=== PATIENT | female | born 1985 | race Caucasian/White ===

== ENCOUNTER 2016-06-14 10:53 | Emergency (ER) | payer OTHER ==
[~2016-06-14] VITALS: Ht 157.5 cm; Wt 61.5 kg
[~2016-06-14 10:53] MED LIST: BENADRYL25 MG PO; DELTASONE20 M1 PO; DIFLUCAN150 MG PO; FLEXERIL10 MG PO; HYCODAN SYRUP480 ML PO; KENALOG,ARISTOC80 GM TP; LIDODERM 5% P1 PATCH TD; LORTAB 5-325 M1 EACH PO; MEDROL DOSEPAK4 MG PO; MOTRIN800 MG PO; NAPROSYN500 MG PO; NORCO 5/3251 TABLET PO; NORCO 7.5/321 TABLET PO; PERCOCET 5/31 TABLET PO; PREDNISONE50 MG PO; PROAIR HFA8.5 GM IH; PROVENTIL HFA6.7 GM IH; VALTREX50 MG/ML PO; VENTOLIN HFA18 GM IH; ZITHROMAX250 MG PO
[2016-06-14 11:06] VITALS: BP 109/79
== END 2016-06-14 12:32 | disposition home or self-care (01) ==
LOC: EME 10:53
DX: S50.02XA Contusion of left elbow, initial encounter (principal); W20.8XXA Other cause of strike by thrown, projected or falling object, initial encounter; F17.200 Nicotine dependence, unspecified, uncomplicated; Z88.5 Allergy status to narcotic agent; Z88.8 Allergy status to other drugs, medicaments and biological substances; Z88.6 Allergy status to analgesic agent
CPT/HCPCS: 73080; 99281; 99283

== ENCOUNTER 2016-07-08 11:01 | Emergency (ER) | payer OTHER ==
[~2016-07-08] VITALS: Ht 157.5 cm; Wt 63.6 kg
[2016-07-08 11:46] LABS: HEMATOCRIT 37.6 % (36.0-46.0); MCH 31.8 PG (29.0-34.0); MCHC 33.8 G/DL (30.0-36.0); MCV 94.2 FL (83-99); MEAN PLAT.VOLUME 9.8 uM^3 (9.5-12.4); PLATELET COUNT 282 K/uL (156-360); RBC DIS.WIDTH-CV 12.6 % (11.8-14.6); RBC DIS.WIDTH-SD 43.5 % (39-53); RED BLOOD COUNT 3.99 M/uL (3.80-5.20); WHITE BLOOD COUNT 6.6 K/uL (4.1-10.2)
[2016-07-08] MEDS ORDERED: PNV PRENATAL P1 EACH PO (12:23)
[2016-07-08] MEDS ORDERED: PERCOCET 5/31 TABLET PO (12:24)
[2016-07-08 12:36] LABS: ADD MIUA? YES; BILIRUBIN NEGATIVE; BLOOD SMALL; COLOR YELLOW ((YELLOW)); GLUCOSE (STRIP) NEGATIVE; KETONES NEGATIVE; LEUKOCYTES NEGATIVE; NITRITE NEGATIVE; PROTEIN (STRIP) NEGATIVE; SPECIFIC GRAVITY 1.009 (1.000-1.030); UROBILINOGEN 0.2 MG/DL (0.2-1.0)
[2016-07-08 12:41] LABS: BACTERIA NONE SEEN /HPF; EPITHELIAL CELLS RARE /HPF; MUCUS TRACE /LPF; RED BLOOD CELLS 0-5 /HPF (0-5); UCUL ADDED? NO; WHITE BLOOD CELLS 0-5 /HPF (0-5)
[2016-07-08 14:58] VITALS: BP 116/82
== END 2016-07-08 15:09 | disposition home or self-care (01) ==
LOC: EXP 11:01 → EME 11:01 → EXP 15:09
DX: O20.0 Threatened abortion (principal); O99.331 Smoking (tobacco) complicating pregnancy, first trimester; Z3A.01 Less than 8 weeks gestation of pregnancy; F17.200 Nicotine dependence, unspecified, uncomplicated
CPT/HCPCS: 76801; 81003; 84702; 85027; 99281; 99285

== ENCOUNTER 2016-07-30 14:57 | Emergency (ER) | payer OTHER ==
[~2016-07-30] VITALS: Ht 157.5 cm; Wt 61.5 kg
[~2016-07-30 14:57] MED LIST changes: +PNV PRENATAL P1 EACH PO
[2016-07-30 16:06] LABS: HEMATOCRIT 35.7 % (36.0-46.0); MCH 31.9 PG (29.0-34.0); MCHC 33.1 G/DL (30.0-36.0); MCV 96.5 FL (83-99); MEAN PLAT.VOLUME 9.7 uM^3 (9.5-12.4); PLATELET COUNT 364 K/uL (156-360); RBC DIS.WIDTH-CV 13.5 % (11.8-14.6); RBC DIS.WIDTH-SD 47.4 % (39-53); WHITE BLOOD COUNT 9.2 K/uL (4.1-10.2)
[2016-07-30 16:16] LABS: CHLORIDE 107 mEq/L (99-109); POTASSIUM 3.5 mEq/L (3.7-5.4); SODIUM 142 mEq/L (136-147)
[2016-07-30 16:18] LABS: GLUCOSE 97 mg/dL (70-99)
[2016-07-30 16:19] LABS: ANION GAP 12 MEQ/L (2-14)
[2016-07-30 16:22] LABS: GFR ESTIMATE (CALCULATED) > 59 mL/min/
[2016-07-30 16:23] LABS: UREA NITROGEN (BUN) 9 mg/dL (9-23)
[2016-07-30 16:32] LABS: QUANTITATIVE HCG 248.7 MIU/ML
[2016-07-30 16:53] LABS: ADD MIUA? YES; BILIRUBIN NEGATIVE; BLOOD MODERATE; COLOR YELLOW ((YELLOW)); GLUCOSE (STRIP) NEGATIVE; KETONES NEGATIVE; LEUKOCYTES SMALL; NITRITE NEGATIVE; PROTEIN (STRIP) NEGATIVE; SPECIFIC GRAVITY 1.017 (1.000-1.030); UROBILINOGEN 0.2 MG/DL (0.2-1.0)
[2016-07-30 17:01] LABS: BACTERIA RARE /HPF; EPITHELIAL CELLS 1+ /HPF; MUCUS 1+ /LPF
[2016-07-30] MEDS ORDERED: PREDNISONE20 MG PO (17:17)
[2016-07-30 17:30] VITALS: BP 97/66
== END 2016-07-30 17:33 | disposition home or self-care (01) ==
LOC: EME 14:57
PROVIDERS: Physician Assistant
DX: N93.9 Abnormal uterine and vaginal bleeding, unspecified (principal); G43.909 Migraine, unspecified, not intractable, without status migrainosus; F17.200 Nicotine dependence, unspecified, uncomplicated; Z88.6 Allergy status to analgesic agent
CPT/HCPCS: 76856; 80048; 81003; 84702; 85027; 87086; 99281; 99285; J7030

== ENCOUNTER 2016-12-14 17:15 | Emergency (ER) | payer OTHER ==
[~2016-12-14 17:15] MED LIST changes: +PREDNISONE20 MG PO
== END 2016-12-14 21:26 | disposition left against medical advice (07) ==
LOC: EME 17:15
DX: R51 Headache (principal); Z53.21 Procedure and treatment not carried out due to patient leaving prior to being seen by health care provider

== ENCOUNTER 2017-02-28 16:58 | Emergency (ER) | payer OTHER ==
[~2017-02-28] VITALS: Ht 157.5 cm; Wt 64.8 kg
[2017-02-28 19:01] LABS: MCH 33.5 PG (29.0-34.0); MCHC 34.4 G/DL (30.0-36.0); MCV 97.6 FL (83-99); MEAN PLAT.VOLUME 9.9 uM^3 (9.5-12.4); PLATELET COUNT 217 K/uL (156-360); RBC DIS.WIDTH-CV 12.9 % (11.8-14.6); RED BLOOD COUNT 3.28 M/uL (3.80-5.20); WHITE BLOOD COUNT 11.3 K/uL (4.1-10.2)
[2017-02-28 19:09] LABS: PROTHROMBIN TIME 11.6 SEC (10.2-12.9)
[2017-02-28 19:11] LABS: PTT 29.5 SEC (25-37)
[2017-02-28 19:14] LABS: CHLORIDE 106 mEq/L (99-109); POTASSIUM 3.6 mEq/L (3.7-5.4); SODIUM 137 mEq/L (136-147)
[2017-02-28 19:16] LABS: GLUCOSE 101 mg/dL (70-99)
[2017-02-28 19:17] LABS: ANION GAP 8 MEQ/L (2-14)
[2017-02-28 19:20] LABS: GFR ESTIMATE (CALCULATED) > 59 mL/min/; UREA NITROGEN (BUN) 6 mg/dL (9-23)
[2017-02-28] MEDS ORDERED: LOVENOX80 MG/0.8 SC (21:57)
[2017-02-28 22:16] VITALS: BP 111/67
== END 2017-02-28 22:44 | disposition home or self-care (01) ==
LOC: RME 16:58 → EME 16:58 → RME 22:44
PROVIDERS: Physician Assistant Medical
DX: O22.32 Deep phlebothrombosis in pregnancy, second trimester (principal); I82.422 Acute embolism and thrombosis of left iliac vein; I82.412 Acute embolism and thrombosis of left femoral vein; O99.332 Smoking (tobacco) complicating pregnancy, second trimester; Z3A.22 22 weeks gestation of pregnancy; F17.200 Nicotine dependence, unspecified, uncomplicated
CPT/HCPCS: 71275; 80048; 85027; 85610; 85730; 93971; J1650; J7030

== ENCOUNTER 2017-05-03 12:29 | Outpatient (CLI) | payer OTHER ==
[~2017-05-03] VITALS: Ht 157.5 cm; Wt 66.2 kg
[~2017-05-03 12:29] MED LIST changes: +LOVENOX80 MG/0.8 SC
[2017-05-03 12:36] VITALS: BP 100/63
[2017-05-03 12:47] VITALS: BP 104/63
[2017-05-03] MEDS ORDERED: COLACE100 MG PO (12:53)
[2017-05-03 14:12] VITALS: BP 108/64
[2017-05-03 14:36] LABS: SOURCE URINE
[2017-05-05 12:44] LABS: CHLAMYDIA TRACHOMATIS NEGATIVE; NEISSERIA GONORRHOEAE NEGATIVE
== END 2017-05-03 14:53 | disposition home or self-care (01) ==
LOC: LDRP-OP 12:29 → 2WEST 12:30 → LDRP-OP 08-01 15:24
PROVIDERS: Advanced Practice Midwife
DX: O12.03 Gestational edema, third trimester (principal); Z86.718 Personal history of other venous thrombosis and embolism; Z79.01 Long term (current) use of anticoagulants; Z3A.31 31 weeks gestation of pregnancy; O99.333 Smoking (tobacco) complicating pregnancy, third trimester; F17.200 Nicotine dependence, unspecified, uncomplicated
CPT/HCPCS: 59025; 87491; 87591; 93971; G0378

== ENCOUNTER 2017-06-06 21:45 | Outpatient (CLI) | payer OTHER ==
[~2017-06-06 21:45] MED LIST changes: +COLACE100 MG PO
[2017-06-06 22:04] VITALS: BP 106/65
[2017-06-06] MEDS ORDERED: HEPARIN SO5000 UNIT4 SC (23:48)
[2017-06-07] MEDS ORDERED: IBUPROFEN800 MG PO (08:39)
[2017-06-07] MEDS ORDERED: LOVENOX80 MG/0.8 SC (08:39)
== END 2017-06-06 23:50 | disposition home or self-care (01) ==
LOC: LDRP-OP 21:45 → 2WEST 21:47 → LDRP-OP 08-01 05:51
DX: O60.03 Preterm labor without delivery, third trimester (principal); Z3A.36 36 weeks gestation of pregnancy
CPT/HCPCS: 59025; G0378

== ENCOUNTER 2017-06-07 02:20 | Inpatient (IN) | payer OTHER ==
[2017-06-07] VITALS (10 sets, daily range): BP systolic 95–130; BP diastolic 57–84
[~2017-06-07 02:20] MED LIST changes: +HEPARIN SO5000 UNIT4 SC
[2017-06-07 03:32] LABS: BASOPHIL (%) 0.5 % (0-1); BASOPHIL COUNT 0.1 K/uL (0-0.1); EOSINOPHIL (%) 1.9 % (0-5); EOSINOPHIL COUNT 0.3 K/uL (0-0.3); HEMATOCRIT 35.3 % (36.0-46.0); HEMOGLOBIN 12.2 G/DL (11.9-15.5); IMMATURE GRANULOCYTE (%) 1.1 % (0.0-0.7); MCH 34.2 PG (29.0-34.0); MCHC 34.6 G/DL (30.0-36.0); MCV 98.9 FL (83-99); MONOCYTE (%) 5.7 % (3-12); MONOCYTE COUNT 0.8 K/uL (0-0.8); NEUTROPHIL (%) 69.8 % (45-76); NEUTROPHIL COUNT 9.9 K/uL (1.8-6.4); PLATELET COUNT 207 K/uL (156-360); RBC DIS.WIDTH-CV 14.2 % (11.8-14.6); RBC DIS.WIDTH-SD 50.9 % (39-53); RED BLOOD COUNT 3.57 M/uL (3.80-5.20); WHITE BLOOD COUNT 14.2 K/uL (4.1-10.2)
[2017-06-07 05:31] LABS: GROUP B STREP POSITIVE (NEGATIVE)
[2017-06-07 08:00] LABS: THC CANNABINOIDS NEGATIVE (50 ng/mL)
[2017-06-07 08:01] LABS: AMPHETAMINE NEGATIVE (500 ng/mL); BARBITURATES NEGATIVE (200 ng/mL); BENZODIAZEPINES NEGATIVE (150 ng/mL); BUPRENORPHINE NEGATIVE (10 ng/mL); COCAINE NEGATIVE (150 ng/mL); METHADONE NEGATIVE (200 ng/mL); METHAMPHETAMINE NEGATIVE (500 ng/mL); OPIATES (MORPHINE) NEGATIVE (100 ng/mL); OXYCODONE NEGATIVE (100 ng/mL); PHENCYCLIDINE NEGATIVE (25 ng/mL); PROPOXYPHENE NEGATIVE (300 ng/mL); TRICYCLIC ANTIDEPRESSANTS NEGATIVE (300 ng/mL)
[2017-06-07] MEDS ORDERED: IBUPROFEN800 MG PO (08:39)
[2017-06-07] MEDS ORDERED: LOVENOX80 MG/0.8 SC (08:39)
[2017-06-08 07:34] VITALS: BP 102/73
[2017-06-08 14:49] VITALS: BP 109/67
[2017-06-08 22:21] VITALS: BP 111/72
[2017-06-09 08:05] VITALS: BP 112/68
== END 2017-06-09 13:15 | disposition home or self-care (01) | DRG 774 ==
LOC: LDRP-OP 02:20 → 2WEST 02:21 → LDRP-OP 08-01 00:22
PROVIDERS: Obstetrics & Gynecology Obstetrics
DX: O60.14X0 Preterm labor third trimester with preterm delivery third trimester, not applicable or unspecified (principal); O87.1 Deep phlebothrombosis in the puerperium; I82.422 Acute embolism and thrombosis of left iliac vein; Z79.01 Long term (current) use of anticoagulants; O98.52 Other viral diseases complicating childbirth; B00.9 Herpesviral infection, unspecified; O99.824 Streptococcus B carrier state complicating childbirth; O99.814 Abnormal glucose complicating childbirth; O99.334 Smoking (tobacco) complicating childbirth; F17.200 Nicotine dependence, unspecified, uncomplicated; Z3A.36 36 weeks gestation of pregnancy; Z37.0 Single live birth
CPT/HCPCS: 36415; 59025; 85025; 85610; 85730; 87077; 87081; 87086; 87186; 87653; 88307; J1650; J7120

== ENCOUNTER 2017-10-08 15:49 | Emergency (ER) | payer OTHER ==
[~2017-10-08] VITALS: Ht 157.5 cm; Wt 64.1 kg
[~2017-10-08 15:49] MED LIST changes: +IBUPROFEN800 MG PO
[2017-10-08 15:52] VITALS: BP 119/81
== END 2017-10-08 18:44 | disposition left against medical advice (07) ==
LOC: EME 15:49
DX: M25.552 Pain in left hip (principal); M79.605 Pain in left leg; R93.5 Abnormal findings on diagnostic imaging of other abdominal regions, including retroperitoneum; Z53.21 Procedure and treatment not carried out due to patient leaving prior to being seen by health care provider